=== PATIENT | male | born 1940 | race Caucasian/White ===

== ENCOUNTER 2020-11-01 10:19 | Outpatient (REF) | payer MEDICARE, OTHER, SELFPAY ==
[2020-11-01 11:38] LABS: Anion Gap 12 (12-20); Blood Urea Nitrogen 18 mg/dL (9-16); Calcium 9.3 mg/dL (8.4-10.2); Carbon Dioxide 30 mmol/L (22-29); Chloride 105 mmol/L (96-108); Estimated Glomerular Filt Rate 60; Potassium 4.4 mmol/l (3.3-5.1); Sodium 143 mmol/L (135-145)
[2020-11-01 13:53] LABS: Renal w Reflex Lab Use Only Order verified
[2020-11-01 14:00] LABS: Phosphorus 3.3 mg/dL (2.7-4.5)
== END 2020-11-01 10:20 | disposition home or self-care (01) ==
LOC: HO.LAB 10:19
PROVIDERS: PCP Nurse Practitioner Family; Visit Provider Internal Medicine Nephrology
DX: N18.30 Chronic kidney disease, stage 3 unspecified (principal); I12.9 Hypertensive chronic kidney disease with stage 1 through stage 4 chronic kidney disease, or unspecified chronic kidney disease
CPT/HCPCS: 36415; 80051; 82310; 82565; 84100; 84520

== ENCOUNTER 2021-02-22 07:26 | Outpatient (REF) | payer MEDICARE, OTHER, SELFPAY ==
--- NOTE | ~2021-02-22 | XR_ITS ---
EXAMINATION: RIGHT KNEE. AP BILATERAL KNEE STANDING CLINICAL INFORMATION: Pain right knee. COMPARISON: AP bilateral knee and left knee 08/03/2018 TECHNIQUE: AP bilateral knees standing. Right knee 2 views. FINDINGS: AP bilateral knee: There is severe loss of medial compartment with minimal loss of lateral compartment right knee joint space. There is a total left knee prosthesis and alignment. Right knee: There is moderate loss of patellofemoral compartment joint space with periarticular spurring. No abnormal joint effusion seen. No visible fracture noted. 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 No fracture or loose body seen. No abnormal joint effusion seen. Total left knee prosthesis in satisfactory alignment.
--- NOTE | ~2021-02-22 | XR_ITS ---
EXAMINATION: RIGHT KNEE. AP BILATERAL KNEE STANDING CLINICAL INFORMATION: Pain right knee. COMPARISON: AP bilateral knee and left knee 08/03/2018 TECHNIQUE: AP bilateral knees standing. Right knee 2 views. FINDINGS: AP bilateral knee: There is severe loss of medial compartment with minimal loss of lateral compartment right knee joint space. There is a total left knee prosthesis and alignment. Right knee: There is moderate loss of patellofemoral compartment joint space with periarticular spurring. No abnormal joint effusion seen. No visible fracture noted. 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 No fracture or loose body seen. No abnormal joint effusion seen. Total left knee prosthesis in satisfactory alignment.
== END 2021-02-22 07:27 | disposition home or self-care (01) ==
LOC: HO.HOSX 07:26
PROVIDERS: Visit Provider Orthopaedic Surgery
DX: M25.561 Pain in right knee (principal)
CPT/HCPCS: 20610; 73560; 73565; 99212; J1040

== ENCOUNTER 2021-02-28 08:00 | Outpatient (RCR) | payer MEDICARE, OTHER, SELFPAY | END 2021-02-28 13:12 | disposition home or self-care (01) | LOC: HO.PTCHIC 08:00 | PROVIDERS: PCP Nurse Practitioner Family; Visit Provider Physical Medicine & Rehabilitation | DX: G89.29 Other chronic pain (principal); M54.2 Cervicalgia | CPT/HCPCS: 97012; 97014; 97033; 97110; 97140; 97161 ==

== ENCOUNTER 2021-05-08 11:02 | Outpatient (REF) | payer MEDICARE, OTHER, SELFPAY ==
[2021-05-08 12:13] LABS: Anion Gap 12 (12-20); Blood Urea Nitrogen 26 mg/dL (9-16); Calcium 9.3 mg/dL (8.4-10.2); Carbon Dioxide 27 mmol/L (22-29); Chloride 105 mmol/L (96-108); Estimated Glomerular Filt Rate 45; Phosphorus 3.7 mg/dL (2.7-4.5); Potassium 4.1 mmol/L (3.3-5.1); Sodium 140 mmol/L (135-145)
[2021-05-08 13:03] LABS: Creatinine Urine 26.42 mg/dL; Microalbum/Creatinine Ratio Ur 30.2 ug/mg cr
[2021-05-08 13:56] LABS: Renal w Reflex Lab Use Only Order verified
== END 2021-05-08 11:03 | disposition home or self-care (01) ==
LOC: HO.LAB 11:02
PROVIDERS: PCP Nurse Practitioner Family; Visit Provider Internal Medicine Nephrology
DX: I12.9 Hypertensive chronic kidney disease with stage 1 through stage 4 chronic kidney disease, or unspecified chronic kidney disease (principal); N18.30 Chronic kidney disease, stage 3 unspecified
CPT/HCPCS: 36415; 80051; 82043; 82310; 82565; 84100; 84520

== ENCOUNTER 2021-06-17 12:52 | Outpatient (REF) | payer MEDICARE, OTHER, SELFPAY ==
[2021-06-17 14:26] LABS: Anion Gap 12 (12-20); Blood Urea Nitrogen 17 mg/dL (9-16); Calcium 9.6 mg/dL (8.4-10.2); Carbon Dioxide 26 mmol/L (22-29); Chloride 108 mmol/L (96-108); Estimated Glomerular Filt Rate 51; Potassium 4.8 mmol/L (3.3-5.1); Sodium 141 mmol/L (135-145)
== END 2021-06-17 12:53 | disposition home or self-care (01) ==
LOC: HO.LAB 12:52
PROVIDERS: PCP Nurse Practitioner Family; Visit Provider Internal Medicine Nephrology
DX: I12.9 Hypertensive chronic kidney disease with stage 1 through stage 4 chronic kidney disease, or unspecified chronic kidney disease (principal); N18.31 Chronic kidney disease, stage 3a; N28.1 Cyst of kidney, acquired; N20.0 Calculus of kidney
CPT/HCPCS: 36415; 80051; 82310; 82565; 84520

== ENCOUNTER 2021-11-20 10:52 | Outpatient (REF) | payer MEDICARE, OTHER, SELFPAY ==
[2021-11-20 12:12] LABS: Anion Gap 13 (12-20); Blood Urea Nitrogen 25 mg/dL (9-16); Calcium 9.8 mg/dL (8.4-10.2); Carbon Dioxide 30 mmol/L (22-29); Chloride 105 mmol/L (96-108); Estimated Glomerular Filt Rate 44; Potassium 4.6 mmol/L (3.3-5.1); Sodium 143 mmol/L (135-145)
== END 2021-11-20 10:53 | disposition home or self-care (01) ==
LOC: HO.LAB 10:52
PROVIDERS: PCP Nurse Practitioner Family; Visit Provider Internal Medicine Nephrology
DX: I12.9 Hypertensive chronic kidney disease with stage 1 through stage 4 chronic kidney disease, or unspecified chronic kidney disease (principal); N18.31 Chronic kidney disease, stage 3a
CPT/HCPCS: 36415; 80051; 82310; 82565; 84520

== ENCOUNTER 2022-03-27 11:51 | Outpatient (REF) | payer MEDICARE, OTHER, SELFPAY ==
[2022-03-27 12:46] LABS: Anion Gap 15 (12-20); Blood Urea Nitrogen 29 mg/dL (9-16); Calcium 9.9 mg/dL (8.4-10.2); Carbon Dioxide 26 mmol/L (22-29); Chloride 105 mmol/L (96-108); Estimated Glomerular Filt Rate 40; Phosphorus 3.8 mg/dL (2.7-4.5); Potassium 4.1 mmol/L (3.3-5.1); Sodium 142 mmol/L (135-145)
== END 2022-03-27 11:52 | disposition home or self-care (01) ==
LOC: HO.LAB 11:51
PROVIDERS: PCP Nurse Practitioner Family; Visit Provider Internal Medicine Nephrology
DX: I12.9 Hypertensive chronic kidney disease with stage 1 through stage 4 chronic kidney disease, or unspecified chronic kidney disease (principal); N18.31 Chronic kidney disease, stage 3a
CPT/HCPCS: 36415; 80051; 82310; 82565; 84100; 84520

== ENCOUNTER 2022-08-05 09:16 | Outpatient (REF) | payer MEDICARE, OTHER, SELFPAY ==
[2022-08-05 10:39] LABS: Anion Gap 16 (12-20); Blood Urea Nitrogen 22 mg/dL (9-16); Calcium 9.8 mg/dL (8.4-10.2); Carbon Dioxide 26 mmol/L (22-29); Chloride 106 mmol/L (96-108); Estimated Glomerular Filt Rate 47; Potassium 4.3 mmol/L (3.3-5.1); Sodium 144 mmol/L (135-145)
== END 2022-08-05 09:17 | disposition home or self-care (01) ==
LOC: HO.LAB 09:16
PROVIDERS: PCP Nurse Practitioner Family; Visit Provider Internal Medicine Nephrology
DX: I12.9 Hypertensive chronic kidney disease with stage 1 through stage 4 chronic kidney disease, or unspecified chronic kidney disease (principal); N18.31 Chronic kidney disease, stage 3a
CPT/HCPCS: 36415; 80051; 82310; 82565; 84520

== ENCOUNTER 2023-02-10 11:07 | Outpatient (REF) | payer MEDICARE, OTHER, SELFPAY ==
[2023-02-10 12:58] LABS: Anion Gap 11 (12-20); Blood Urea Nitrogen 31 mg/dL (9-16); Calcium 9.4 mg/dL (8.4-10.2); Carbon Dioxide 23 mmol/L (22-29); Chloride 112 mmol/L (96-108); Estimated Glomerular Filt Rate 42; Potassium 4.3 mmol/L (3.3-5.1); Sodium 142 mmol/L (135-145)
[2023-02-10 14:33] LABS: Creatinine Urine 64.27 mg/dL; Total Protein Urine Random < 7 mg/dL (<12)
== END 2023-02-10 11:08 | disposition home or self-care (01) ==
LOC: HO.LAB 11:07
PROVIDERS: PCP Nurse Practitioner Family; Visit Provider Internal Medicine Nephrology
DX: I12.9 Hypertensive chronic kidney disease with stage 1 through stage 4 chronic kidney disease, or unspecified chronic kidney disease (principal); N18.31 Chronic kidney disease, stage 3a
CPT/HCPCS: 36415; 80051; 82310; 82565; 84156; 84520

== ENCOUNTER 2023-10-15 13:00 | Outpatient (RCR) | payer MEDICARE, OTHER, SELFPAY | END 2023-11-20 08:01 | disposition home or self-care (01) | LOC: HO.PTCHIC 13:00 | PROVIDERS: PCP Nurse Practitioner Family; Visit Provider Orthopaedic Surgery | DX: Z96.651 Presence of right artificial knee joint (principal) | CPT/HCPCS: 97110; 97161 ==

== ENCOUNTER 2025-09-20 08:24 | Outpatient (AMB) | payer MEDICARE, OTHER, SELFPAY ==
[2025-09-20 08:27] VITALS: BP 194/78; PULSE 60; TEMP 36.7; O2SAT 96; BMI 29.1
--- NOTE | 2025-09-20 08:27 | MHC.OFFWIV ---
Intake Vital Signs 09/20/25 08:27 Height 5 ft 9 in Weight 197 lb BMI 29.1 BP 194/78 H Blood Pressure Location Lt brachial Position Sitting Pulse 60 Pulse Source Pulse Oximeter Temp 98.1 F Temp Source Oral Pulse Oximetry (%) 96 Oxygen Delivery Method Room Air Intake Visit Reasons: EP cough wheezing congestion Intake Note: Patient presents c/o chest congestion, cough, wheezing x1 week. Patient received the Covid vaccine & another vaccine on 09/12 & has been sick since receiving those. Tested for Covid at home and was negative. Patient Tobacco Use Status: Never used Tobacco Allergies egg (EGG) Allergy (Intermediate, Unverified 09/20/25 08:32) SOB/CONGESTION/DIFF.SWALLOWING oxycodone Allergy (Mild, Verified 09/20/25 08:32) Insomnia tramadol Allergy (Mild, Verified 09/20/25 08:32) Itching HPI HPI Comments History of Present Illness Details Patient is an 84yo M who presents with cough Ongoing over 1 week + cloricidine without relief; minimal phlegm production + wheezing but denies SOB Cough is dry No improvement with warm showers No hx of asthma or smoking +fatigue Had body aches and fevers but none currently + ST and congestion. No ear pain Normal; no vomiting or diarrhea Prior to symptoms recieved the covid booster and one other vaccine (not the flu shot-egg allergy) [facility] Social History (Updated 02/22/21 @ 11:29 by CINDY Coronado) Alcohol intake: never Patient Tobacco Use Status: Never used Tobacco Current occupational status: retired Gender identity: Male Review of Systems Const Reports body aches (previously but resolved), Denies chills, Reports fatigue, Denies fever(s) and Denies headache(s) Eyes Denies blurry vision ENT Denies dizziness, Denies otalgia, Denies headache(s), Reports nasal congestion, Reports nasal discharge, Denies sinus pain, Denies sinus pressure, Denies sore throat and Denies tongue swelling Card Denies chest pain and Denies syncope Resp Reports cough and Reports wheezing GI Denies abdominal pain, Denies diarrhea and Denies vomiting Musc Reports myalgias (previously, resolved) Neuro Denies dizziness, Denies syncope and Denies headache(s) Endo Reports fatigue Aller/Immun Denies tongue swelling and Reports wheezing Physical Exam Exam Exam: General: Non-toxic, NAD. Speaking full sentences. Skin: Warm dry throughout Eye: EOMI HENT: Airway patent. Uvula midline. No pharyngeal erythema or edema. No CANDY WAFFLE ASSEMBLER. Bilateral canals clear. TM non-erythematous, non-bulging. No TM perforation or hemotympanum noted. Respiratory: CTA bilaterally. No wheezes, rales or rhonchi Cardiac: RRR. No murmur MSK: Full ROM extremities. Neurology: Alert. No aphasia or facial droop. Gait without abnormality Psych: Good mood and affect Vital Signs: Last Vital Signs Temp 98.1 F 09/20/25 08:27 Pulse 60 09/20/25 08:27 BP 194/78 H 09/20/25 08:27 Pulse Ox 96 09/20/25 08:27 Oxygen Delivery Method Room Air 09/20/25 08:27 BMI result Body Mass Index 29.1 Assessment & Plan Assessment & Plan (1) Cough: Code(s): R05.9 - Cough, unspecified Qualifiers: Cough type: acute Qualified Code(s): R05.1 - Acute cough Plan: Patient seen and evaluated. Lungs without crackles on exam Xray ordered: I viewed as negative for infiltrate. Will d/c with Tessalon and advise to restart his BP medicine as he did not take prior to arrival to office and is noted to be hypertensive Patient and gave verbal understanding and had no additional questions or concerns at time of discharge All questions answered Xray came back + for inflammatory vs infectious; will call pt in antibiotic. tried to call and went to voicemail 11:22 am I discussed with pt the results and he will come back if continual or worse after antibiotics. Sent in antibiotics for CAP coverage Amoxicillin/Doxy. Answered all questions and had no additional concerns at this time. (2) Pneumonia: Code(s): J18.9 - Pneumonia, unspecified organism Qualifiers: Pneumonia type: due to unspecified organism Laterality: right Lung location: lower lobe of lung Qualified Code(s): J18.9 - Pneumonia, unspecified organism Plan: see tx plan above Orders: Orders XR chest 2V Today R05.9 - Cough, unspecified Medications: New benzonatate 100 mg PO BID-TID PRN 30 caps 0RF cough doxycycline hyclate 100 mg PO BID 14 caps 0RF amoxicillin 875 mg PO TID 15 tabs 0RF 5 days Coding Level of Care Code Est Pt Level 3 (46095) Diagnoses Acute cough R05.1 Cough type: acute Pneumonia of right lower lobe due to infectious organism J18.9 Pneumonia type: due to unspecified organism Laterality: right Lung location: lower lobe of lung
--- OUTSIDE RECORDS SUMMARY | 2025-09-20 08:35 | XMS_ITS | Patient Health Record ---
Author Organization [facility] Address [address] [place] [id number] Care Team Providers Care Delivery Clerk Name Role Phone Rosendo Sevilla Jr Reason For Referral No Information Plan Of Treatment No Information
--- OUTSIDE RECORDS SUMMARY | 2025-09-20 08:35 | XMS_ITS ---
Author Name [facility] Organization Unknown History of Medication Use Medication Directions Dispensed Refills Start Date End Date Stat cefdinir (OMNICEF) 300 mg Oral Capsule Take 1 Capsule (300 mg total) by mouth Twice daily for 7 days 06/26/2023 07/04/2023 active DULoxetine (CYMBALTA DR) 30 mg Oral Capsule, Delayed Release(E.C.) Take 1 Capsule (30 mg total) by mouth 06/22/2023 active SITagliptin phosphate (JANUVIA) 50 mg Oral Tablet Take 1 Tablet (50 mg total) by mouth 04/16/2023 active donepeziL (ARICEPT) 10 mg Oral Tablet Take 1 Tablet (10 mg total) by mouth Every night 03/11/2023 active hydrALAZINE (APRESOLINE) 50 mg Oral Tablet Take 1.5 Tablets (75 mg total) by mouth 02/27/2023 02/23/2024 active lisinopriL (PRINIVIL) 20 mg Oral Tablet 1 Tablet (20 mg total) 12/04/2022 active finasteride (PROSCAR) 5 mg Oral Tablet Take 1 Tablet (5 mg total) by mouth 08/20/2022 active empagliflozin (JARDIANCE) 25 mg Oral Tablet Take 1 Tablet (25 mg total) by mouth 07/25/2022 active atorvastatin (LIPITOR) 40 mg Oral Tablet Take 1 Tablet (40 mg total) by mouth Once a day 07/01/2022 active furosemide (LASIX) 40 mg Oral Tablet Take 0.5 Tablets (20 mg total) by mouth Once a day 07/01/2022 active aspirin (ECOTRIN) 81 mg Oral Tablet, Delayed Release (E.C.) Take 1 Tablet (81 mg total) by mouth 05/07/2020 active spironolactone (ALDACTONE) 25 mg Oral Tablet Take 1 Tablet (25 mg total) by mouth 05/07/2020 active pantoprazole (PROTONIX) 40 mg Oral Tablet, Delayed Release (E.C.) TAKE 1 TABLET BY MOUTH EVERY DAY 30-60 MINUTES BEFORE A MEAL 08/06/2017 active insulin glargine 100 unit/mL Subcutaneous injection (vial) Inject 24 Units under the skin active Magnesium 200 mg Oral Tablet Take by mouth active memantine (NAMENDA) 10 mg Oral Tablet Take 1 Tablet (10 mg total) by mouth Twice daily active Allergies Allergen Reaction Severity Comment Documented Date Source Statu s TRAMADOL ITCHING Mild Other reaction( s): Insomnia 03/24/2023 [facility] active TERAZOSIN OTHER ADVERSE REACTION (ADD COMMENT) 06/27/2020 [facility] active OXYCODONE Dropped BP [facility] Problems Problem Status Onset Date Problem Type Date of Resoluti on Source Urinary frequency active EncounterDiagnosisAct [facility] Hematuria, unspecified type active EncounterDiagnosisAct [facility] Acute cystitis with hematuria active EncounterDiagnosisAct [facility] Hypertension, unspecified type active EncounterDiagnosisAct [facility] Glucose found in urine on examination active EncounterDiagnosisAct [facility] Encounters Encounter Type Encounter Reason Primary Diagnosis Location Date Ambulatory Acute cystitis with hematuria Acute cystitis with hematuria [facility] 06/26/2023 Care Team Organization Name Specialty Phone Email Start Date End Da josé luis [facility] NO PCP Primary Care 06/26/2023 [facility] 06/26/2023
--- OUTSIDE RECORDS SUMMARY | 2025-09-20 08:35 | XMS_ITS | Clinical Summary ---
Author Organization [facility] Address [address] [place] [address] Care Team Providers Care Field Artillery Fire Control Man Name Role Phone Omer Harrison Primary Care Provider [phone] Allergies Active Allergy Reactions Criticality Noted Date Comments Egg Nasal congestion 02/24/2024 Medications acetaminophen (TYLENOL) 500 mg tablet 1,000 mg. 02/23/2023 Active aspirin 81 mg EC tablet Take 1 tablet by mouth 2 times a day. Active atorvastatin (LIPITOR) 80 mg tablet Take 80 mg by mouth nightly. 07/07/2023 Active carvediloL (COREG) 3.125 mg tablet Take 3.125 mg by mouth 2 times daily. 07/31/2023 Active ciclopirox (LOPROX) 0.77 % cream SMARTSIG:Top ical Twice Daily PRN 03/09/2023 Active citalopram (CeleXA) 10 mg tablet Take 10 mg by mouth once a day. Active cloNIDine (CATAPRES) 0.1 mg tablet 1 tablet every 24 hours. Active donepeziL (ARICEPT) 10 mg tablet Take 10 mg by mouth nightly. Active DULoxetine DR (CYMBALTA) 30 mg capsule Take 30 mg by mouth 2 times daily. 11/12/2023 Active empagliflozin (JARDIANCE) 25 mg tablet Take 25 mg by mouth in the morning. 01/28/2023 Active escitalopram (LEXAPRO) 5 mg tablet SMARTSI Tablet(s) By Mouth Daily Active finasteride (PROSCAR) 5 mg tablet Take 5 mg by mouth in the morning. Active gabapentin (NEURONTIN) 600 mg tablet Take 600 mg by mouth 2 times daily. 10/20/2023 Active hydrALAZINE (APRESOLINE) 50 mg tablet 2 tabs BID and 1 tab midday 02/27/2023 Active insulin glargine (LANTUS) injection 100 units/mL vial Inject 36 Units under the skin daily. Active lisinopriL (PRINIVIL,ZESTR IL) 40 mg tablet Take 20 mg by mouth in the morning. Active magnesium 200 mg tablet Take 1 capsule by mouth every evening. Active memantine (NAMENDA) 5 mg tablet Take 10 mg by mouth 2 times a day. Active oxyCODONE IR (ROXICODONE) 5 mg tablet SMARTSI-2 Tablet(s) By Mouth Every 4 Hours PRN 02/13/[address] (PROTONIX) 40 mg tablet 40 mg every evening. Active Januvia 50 mg tablet Take 50 mg by mouth every evening. Active SITagliptin phosphate (JANUVIA) 50 mg tablet Take 1 tablet by mouth once a day. 04/16/2023 Active traMADoL (ULTRAM) 50 mg tablet Take 50 mg by mouth every 6 hours as needed. 06/13/2023 Active furosemide (LASIX) 40 mg tablet Take 20 mg by mouth every other day. 01/16/2024 Active vit A/vit C/vit E/zinc/copper (ICAPS AREDS ORAL) Take 1 tablet by mouth 2 times a day. Active spironolactone (ALDACTONE) 25 mg tablet Take 25 mg by mouth in the morning. Active Active Problems Problem Noted Date Diagnosed Date Aortic valve stenosis 02/23/2024 BPH (benign prostatic hyperplasia) 02/23/2024 Chronic diastolic (congestive) heart failure Overview (02/23/2024): Last Assessment & Plan: He tells me that he has felt well. He has not had any symptoms of heart failure. GERD (gastroesophageal reflux disease) Overview (02/23/2024): Last Assessment & Plan: PPI continued. 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 Garcia Last Assessment & Plan: Status post elective TURBT, with plan discussed with Dr. Garcia. -Maintain Toscano catheter to gravity -Hand irrigate as needed for obstruction -No CBI due to concern for possible perforation of the bladder if the catheter becomes obstructed with CBI running -Patient will be discharged with Toscano catheter when appropriate for discharge. Outpatient follow-up in urology office Thursday or Thursday of next week. -Aspirin can be restarted on discharge if hematuria is resolving. -EKG requested for baseline. No need for continuous telemetry monitoring. Bilateral carotid artery disease 03/26/2020 Overview (02/23/2024): Last Assessment & Plan: Carotid ultrasound from September 2021 showed 16 to 49% stenosis bilaterally. We will recheck a carotid duplex next year. Benign essential hypertension 10/28/2019 Overview (02/23/2024): Last Assessment & Plan: Blood pressure goal of less than 130/90. During his last visit in October we increased his hydralazine to 100 mg p.o. twice daily in addition to his other antihypertensives. Blood pressure is at goal today. Calculus of kidney 03/11/2018 Stage 3 chronic kidney disease 03/11/2018 Overview (02/23/2024): Last Assessment & Plan: Creatinine appears to be at the patient's baseline 1.4 on arrival. BUN 23 with EGFR 51. Will monitor BMP daily. We will try to avoid nephrotoxic medications but have continued his home regimen. Aortic regurgitation 08/14/2017 Overview (02/23/2024): Last Assessment & Plan: See above plan. 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 We will reevaluate with another ultrasound to monitor for patency. Last Assessment & Plan: He has a history of renal artery stenosis. Most recent ultrasound showed that his stents are patent. We will continue to obtain annual ultrasounds. Family History Relation Name Status Comments Father Mother Social History Tobacco Use Types Packs/Day Years Used Date Smoking Tobacco: Never Smokeless Tobacco: Never Tobacco Cessation:Counseling Given: Not Answered Alcohol Use Standard Drinks/Week Comments Not Currently 0 (1 standard drink = 0.6 oz pur e alcohol) one drink every other month Sex and Gender Information Value Date Recorded Sex Assigned at Male 11/05/2023 2:01 PM EST Legal Sex Male 8:30 AM EST Gender Identity Male 11/05/2023 2:01 PM EST Sexual Orientation Straight 11/05/2023 2: 01 PM EST Last Filed Vital Signs Vital Sign Reading Time Taken Comments Blood Pressure 170/78 02/24/2024 8:45 PM EDT Pulse 67 02/24/2024 8:45 PM EDT Temperature 36.4 C (97.6 F) 03/03/2024 2:24 PM EDT Respiratory Rate 10 02/24/2024 8:45 PM EDT Oxygen Saturation 99% 02/24/2024 8:45 PM EDT Inhaled Oxygen Concentration - - Weight 79.4 kg (175 lb) 02/19/2024 2:52 PM EDT Height 175.3 cm (5' 9 ) 02/19/2024 2:52 PM EDT Body Mass Index 25.84 02/19/2024 2:52 PM EDT Plan of Treatment Health Maintenance Due Date Last Done Comments Medicare AWV 1941 Ophthalmology Exam 1950 Hemoglobin A1C 09/01/2024 03/01/2024, 11/05, 10/16/2020 Alcohol/Substance Use Screening 10/05/2024 Depression Screening and Follow-Up 10/05/2024 Fall Risk Screening 10/05/2024 Health Care Proxy Review 10/05/2024 Social Drivers of Health Annual Screening 10/05/2024 Basic Metabolic Panel 02/10/2025 02/11/2024, 024 Urine Microalbumin 02/10/2025 02/11/2024 Influenza Vaccine (#1) 2025 , 07/09/2023, 07/05/2023, Additional history exists COVID-19 Vaccine ( season) 2025 11/19/2022, 10/18/2021, 11/15/2020, Additional history exists DTaP,Tdap,and Td Vaccines (2 - Td or Tdap) 08/26/2029 08/26/2019 Pneumococcal Vaccine: 50+ Years Completed 02/02/2015, 03/08/2014, 08/05/2013 Zoster Vaccines Completed 03/12/2023, 11/05, 03/17/2017 RSV Vaccine (60+ years old and patients) Completed 09/08/2023 Hepatitis B Vaccines Aged Out No long er eligible based on patient's age to complete this topic Insurance [facility] MEDICARE [facility] MEDICARE Care Teams Field Artillery Fire Control Man Relationship Specialty Start Date End Date Omer Harrison [address] [place] [address] [place] [address] PCP - General Internal Medicine 10/07/23
--- OUTSIDE RECORDS SUMMARY | 2025-09-20 08:35 | XMS_ITS | Clinical Summary ---
Author Organization [facility] Prior to 03/04/[address] [place] [address] Care Team Providers Care Glass Mechanic Name Role Phone Omer Harrison MD Primary Care Provider [phone] Allergies No known active allergies Medications Medication Sig Dispensed Refills Start Date End Date Status ATORVASTATIN CALCIUM PO Take by mouth. 0 Active FUROSEMIDE PO Take by mouth. 0 Active gabapentin (NEURONTIN) 300 MG capsule Take 300 mg by mouth. 0 Active LISINOPRIL PO Take by mouth. 0 Active METFORMIN HCL PO Take by mouth. 0 Acti ve aspirin EC 81 MG tablet Take 81 mg by mouth daily. 0 Active clopidogrel (PLAVIX) 75 MG tablet Take 75 mg by mouth daily. 0 Active citalopram (CELEXA) 10 MG tablet Take 10 mg by mouth daily. 0 Active Coenzyme Q10 (CO Q 10 PO) Take by mouth. 0 Active glimepiride (AMARYL) tablet 1 mg Take 1 mg by mouth. 0 Active hydrALAZINE (APRESOLINE) 25 MG tablet Take 25 mg by mouth. 0 Active insulin glargine (LANTUS) injection 100 units/mL Inject under the skin. 0 Active LORazepam (ATIVAN) 0.5 MG tablet Take 0.5 mg by mouth. 0 Active NIFEdipine (PROCARDIA XL) 90 MG 24 hr tablet Take by mouth. 0 Active pantoprazole (PROTONIX) 40 MG tablet Take 40 mg by mouth. 0 Active traMADol (ULTRAM) 50 MG tablet Take 50 mg by mouth. 0 Active Multiple Vitamins-Minerals (PRESERVISION AREDS PO) Take by mouth. 0 Active Active Problems Problem Noted Date Diagnosed Date Complex renal cyst UTI (urinary tract infection) Elevated PSA BPH (benign prostatic hyperplasia) Kidney stone Nocturia Chronic kidney disease (CKD), stage III (moderat e) Renal artery stenosis Family History Medical History Relation Name Comments Heart disease Brother Hypertension Father COPD Mother Hypertension Mother Diabetes Other GRANDMOTHER Relation Name Status Comments Brother Father Mother Other GRANDMOTHER Alive Social History Tobacco Use Types Packs/Day Years Used Date Smoking Tobacco: Never Smokeless Tobacco: Never Alcohol Use Standard Drinks/Week Comments Yes 0 (1 standard drink = 0.6 oz pur e alcohol) Sex and Gender Information Value Date Recorded Sex Assigned at Not on file Gender Identity Not on file Sexual Orientation Not on file Plan of Treatment Health Maintenance Due Date Last Done Comments COVID-19 Vaccine (#1) 05/25/1941 Depression Screening 1954 Preventative Health Evaluation 1960 DTap / Tdap / Td (1 - Tdap) 1961 Shingrix-Zoster Vaccine (1 o f 2) 1992 Fall Risk Assessment 2007 RSV Adult > 60+ Yrs or (1 - 1-dose 75+ series) 2017 Influenza Vaccine (#1) 2025 Pneumococcal Vaccine Completed 02/02/2015, 08/05/2013 Hepatitis B Vaccines Aged Out No long er eligible based on patient's age to complete this topic RSV Ped < 20 months Aged Out No longe r eligible based on patient's age to complete this topic Care Teams Glass Mechanic Relationship Specialty Start Date End Date Omer Harrison MD [address] [place] [address] PCP - General Internal Medicine 01/25/18
--- OUTSIDE RECORDS SUMMARY | 2025-09-20 08:35 | XMS_ITS | Patient Health Record ---
Author Organization [facility] Address [address] [place] [address] Care Team Providers Care Supervisor Seaming Name Role Phone Kasey ARCOS, Jaycee Primary Care Provider Unavailfrancia e Meri Valdez Unavailable [phone] Allergies No Known Allergies Reason For Referral No Information Medications Medication SIG (Take, Route, Frequency, Duration) Notes Start Date End Date Status Levemir FlexPen Acti ve Escitalopram Oxalate 5 MG 1 tablet Orall y Once a day; Duration: 30 day(s) Active hydrALAZINE HCl 50 MG as directed Orally Twice a day Active Atorvastatin Calcium 40 MG 1 tablet Orally Once a day Active Spironolactone 25 MG Orally Active metFORMIN HCl 500 MG 1 tablet with meals Orally Twice a day Active PreserVision AREDS 2 Active Furosemide 40 MG 1 tablet Orally Once a day Active Pantoprazole Sodium 40 MG 1 tablet Orall y Once a day; Duration: 30 day(s) Active Lisinopril 40 MG 1 tablet Orally Once a day Active LORazepam 0.5 MG 1 tablet as needed Orally every 6 hrs Active amLODIPine Besylate 10 MG 1 tablet Orall y Once a day; Duration: 30 day(s) Not-Taking Citalopram & Diet Manage Prod 10 MG Orally Not-Taking -81 Active Clopidogrel Bisulfate Not-Taking Co Enzyme Q-10 Activ e Extra Depth Orthopedic Shoes (1 Pair) with Customized Heat Molded Multidensity Innersoles (3 Pair) as directed Dx: NIDDM/Polyneuropathy (E11.42), Hammertoe Foot Deformity (M20.41,M20.42), Preulcerative Skin Lesion(s) (L85.1 09/13/2020 Active Alogliptin Benzoate 12.5 MG 2 tablets Orally Once a day; Duration: 30 day(s) Active Ciclopirox Olamine 0.77 % 1 application Externally Twice a day; Duration: 30 days 09/13/2020 Active Probiotic Active Donepezil HCl 5 MG 1 tablet at bedtime Orally Once a day; Duration: 30 day(s) Active cloNIDine HCl 0.1 MG 1 tablet Orally Onc e a day Not-Taking Aggrenox 25-200 MG 1 capsule Orally Twi ce a day Not-Taking Labetalol HCl 200 MG 1 tablet Orally Twi ce a day; Duration: 30 day(s) Not-Taking Ciclopirox Olamine 0.77% external Apply to effected areas twice a day; Duration: 30 days 10/08/2015 Not-Takin g Vitamin D Not-Taking Glimepiride 1 MG 1 tablet with breakf ast or the first main meal of the day Orally Once a day Not-Taking NIFEdipine 10 MG 1 capsule Orally Thr ee times a day Not-Taking Gabapentin 300 MG 2 capsule Orally twi ce a day Active Immunizations Vaccine Route Administration Date Status Comme nts Influenza Unknown 08/06/2020 Administered COVID-19 Moderna Vaccine Unknown 10/18/2020 Administered Second Dose: 11/15/2020 Social History Tobacco Use: Social History Observation Description Date Details (start date - stop date) Never Smoker NA - NA Tobacco Use/Smoking Question Answer Notes Are you a: nonsmoker Additional Findings: Tobacco Non-User Current no n-smoker Alcohol Screen Question Answer Notes Did you have a drink contain ing alcohol in the past year? Yes How often did you have a dri nk containing alcohol in the past year? 2 to 4 times a month (2 points) How often did you have 6 or more drinks on one occasion in the past year? Monthly (2 points) Points 4 Interpretation Positive Tobacco use other than smoking: Question Answer Notes Are you an other tobacco user? No Problems Problem Type SNOMED Code ICD Code Onset Dates Problem Status W/U Status Risk Notes Problem Information temporarily unavailable Other hammer toe(s) (acquired), right foot (M20.41) Active confirmed Problem Information temporarily unavailable Other hammer toe(s) (acquired), left foot (M20.42) Active confirmed Problem Information temporarily unavailable Other hammer toe(s) (acquired), right foot (M20.41) Active confirmed Problem Information temporarily unavailable Other hammer toe(s) (acquired), left foot (M20.42) Active confirmed Problem Information temporarily unavailable Type 2 diabetes mellitus with diabetic polyneuropathy (E11.42) Active confirmed Problem Information temporarily unavailable Hallux rigidus, right foot (M20.21) Active confirmed Plan Of Treatment Pending Test Test Name Order Date [id number] NAIL, -10/08/2015 [id number] NAIL, -08/08/2019 10941-ZJHIAXE NAIL, -11/24/2019 05886-QELOOMY NAIL, -03/01/2020 51178-GYAASIE NAIL, 10-0906/07/2020 64923-ABZATHM NAIL, 10-0909/13/2020 16772-XOHMWXU NAIL, 10-0901/21/2021 00643-ZTTTIJS NAIL, -04/22/2021 71971-CTRKVZH NAIL, -08/01/2021 13263-Pyou Destruction, -08/01/2021 48933-Eand Destruction, -03/01/2020 27684-Vynz Destruction, -11/24/2019 92264-Eohz Destruction, -14 10/08/2015 62408-GAQX SKIN LESIONS, 2 TO 4 10/08/19 16 39348-XNUY SKIN LESIONS, 2 TO 4 11/24/19 20 85315-FUIE SKIN LESIONS, 2 TO 4 03/01/20 20 23556-XZPK SKIN LESIONS, 2 TO 4 06/07/20 20 57441-KGRM SKIN LESIONS, 2 TO 4 09/13/20 20 60174-LYGB SKIN LESIONS, 2 TO 4 01/22/20 21 69474-CCDW SKIN LESIONS, 2 TO 4 04/22/20 21 06032-FKEW NAIL(S) 01/21/2021 73072-ZQZU NAIL(S) 08/01/2021 45298-WVBY NAIL(S) 04/22/2021 10484-JNNA NAIL(S) 03/01/2020 89677-WDIQ NAIL(S) 09/13/2020 54057-TDLS NAIL(S) 06/07/2020 02117-BZNW NAIL(S) 11/24/2019 77118-RTWL NAIL(S) 08/08/2019 Insurance Providers Payer Name Payer Address Payer Phone Subscriber Number Group Number Insured Name Patient Relationship to Insured Coverage Start Date Coverage End Date Medicare [employer] [facility] [address] [place] [address] [id number] Mario Velasco Self - patient is the insured [facility] [address] [place] [phone] [id number] Mario Velasco Self - patient is the insured Medical (General) History Medical History History ICD Code Anxiety Diabetic Lyme disease Measles Chicken pox Arthritis Back,Hip,and Knee pain Broken bones CAD (Cholesterol) Gall bladder problems Headaches/Migraines Hypertension Kidney disease Numbness Reflux ( GERD) Stomach ulcer Surgical History Surgery Date(Month/Year) cholecystectomy knee replacement 07/2017 stent kidney stone tear duct surgery 06/05/2020 Hospitalization History Reason Date(Month/Year) [facility]- Pain an d tingling in neck and shoulder- pinch nerve 09/22
== END 2025-09-20 09:17 | disposition home or self-care (01) ==
PROVIDERS: PCP Nurse Practitioner Family; Visit Provider Physician Assistant
DX: R05.1 Acute cough (principal); J18.9 Pneumonia, unspecified organism

== ENCOUNTER 2025-09-20 08:24 | Outpatient (REF) | payer MEDICARE, OTHER, SELFPAY ==
--- NOTE | ~2025-09-20 | XR_ITS ---
EXAMINATION: XR CHEST CLINICAL INFORMATION: R05.9 - Cough, unspecified COMPARISON: X-ray 09/09/2016 TECHNIQUE: 2 views of the chest were obtained. FINDINGS: Heart size is stable, within normal limits. Peribronchial thickening and hazy opacities in the medial right lower lung. This could reflect inflammatory infectious process. No effusion. No edema. No pneumothorax is seen. No acute osseous findings. Thoracic spondylosis.. XR/XR chest 2V IMPRESSION: Findings in the right lower lung could reflect inflammatory/infectious process. Electronically signed by: Jude Singh MD 09/20/2025 09:28 AM EST
== END 2025-09-20 08:25 | disposition home or self-care (01) ==
LOC: HO.HMGCX 08:24
PROVIDERS: PCP Nurse Practitioner Family; Visit Provider Physician Assistant
DX: R05.1 Acute cough (principal); J18.1 Lobar pneumonia, unspecified organism
CPT/HCPCS: 71046; 99212

== ENCOUNTER → 2025-09-20 09:07 | Outpatient (BNV) | payer MEDICARE, OTHER, SELFPAY | PROVIDERS: PCP Nurse Practitioner Family; Visit Provider Radiology Diagnostic Ultrasound | DX: R05.9 Cough, unspecified (principal) | CPT/HCPCS: 71046 ==